=== PATIENT | male | born 1980 | race African-American/Black ===

== ENCOUNTER 2024-11-27 11:16 | Emergency (ER) | payer MEDICAID, OTHER ==
[~2024-11-27] VITALS: Ht 177.8 cm; Wt 76.0 kg
[2024-11-27 11:31] VITALS: TEMP 98.1
[2024-11-27 12:03] VITALS: BP 128/75; PULSE 89; RESP 16; O2SAT 96
[2024-11-27] MEDS ORDERED: CLON-441 PO (12:16)
== END 2024-11-27 12:34 | disposition home or self-care (01) ==
LOC: EMS 11:18
DX: F11.23 Opioid dependence with withdrawal (principal); G47.00 Insomnia, unspecified; Z88.6 Allergy status to analgesic agent
CPT/HCPCS: 93005; 99283

== ENCOUNTER 2024-11-27 14:35 | Emergency (ER) | payer MEDICAID, OTHER ==
[~2024-11-27] VITALS: Ht 177.8 cm; Wt 76.0 kg
[~2024-11-27 14:35] MED LIST: CLON-441 PO
[2024-11-27 15:43] LABS: PLATELET COUNT (AUTO) 209 K/uL (150-450); RED BLOOD CELL COUNT(AUTO) 4.44 MIL/uL (4.50-5.90); RED CELL DISTRIBUTION WIDTH 13.4 % (11.5-14.5); WHITE BLOOD COUNT (AUTO) 4.3 K/uL (4.5-11.0)
[2024-11-27 15:51] LABS: CALCIUM, TOTAL 8.9 mg/dL (8.8-10.5); CREATININE 0.88 mg/dL (0.60-1.30); GLOMERULAR FILTR. RATE CALC > 60 mL/min (>60); GLUCOSE,RANDOM 110 mg/dL (70-110); SODIUM SERUM 143 mmol/L (136-145); UREA NITROGEN, BLOOD 9 mg/dL (7-18)
[2024-11-27 18:29] LABS: PH,URINE DRUG SCREEN 6.5 (5.0-8.0)
[2024-11-27 18:39] LABS: ALCOHOL, URINE DRUG SCREEN NEGATIVE (NEGATIVE); AMPHET/METH SCREEN,URINE NEGATIVE (NEGATIVE); BARBITURATE SCREEN, URINE NEGATIVE (NEGATIVE); CANNABINOID SCREEN,URINE NEGATIVE (NEGATIVE); COCAINE SCREEN,URINE NEGATIVE (NEGATIVE); METHADONE SCREEN, URINE NEGATIVE (NEGATIVE)
[2024-11-27 20:07] VITALS: TEMP 98.2
[2024-11-27] MEDS: BUPRENORPHINE HCL/NALOXONE HCL 8-2 MG SUBLINGUAL TABLET SL ONE (20:23)
[2024-11-27 20:29] VITALS: BP 128/67; PULSE 59; RESP 15; O2SAT 100
== END 2024-11-27 20:35 | disposition home or self-care (01) ==
LOC: EMS 14:35
DX: F11.23 Opioid dependence with withdrawal (principal); Z88.6 Allergy status to analgesic agent; Z79.899 Other long term (current) drug therapy; Z88.8 Allergy status to other drugs, medicaments and biological substances
CPT/HCPCS: 80048; 80307; 85025; 99285